=== PATIENT | male | born 1995 | race African-American/Black ===

== ENCOUNTER 2016-10-05 10:42 | Emergency (ER) | payer SELFPAY ==
[2016-10-05 10:42] VITALS: BP 140/73
[~2016-10-05 10:42] MED LIST: ALBU1.25 NEB; IBUP-1027 PO; NAPR375T3 PO; OMEP20TA PO; PRED50TA PO; PROAIR HFA8.5 GM INH
[2016-10-05] MEDS ORDERED: PRED20TA PO (11:01)
[2016-10-05] MEDS ORDERED: AZIT250T PO (11:01)
[2016-10-05] MEDS ORDERED: PROVENTIL HFA6.7 GM IH (11:01)
--- NOTE | 2016-10-05 11:01 | PHYS DOC ---
Past Medical History Past Medical History: Asthma Additional Past Medical Histor: ADHD Past Surgical History: No Surgical History Alcohol Use: None Drug Use: None Adult General Chief Complaint Chief Complaint: COUGH HPI HPI 20-year-old male with a history of asthma presents with several day history of cough congestion. He states cough is productive of yellow sputum. He denies any high fever chills or sweats. He denies smoking. He states he has been out of his albuterol inhaler at home. [] Review of Systems Review of Systems Constitutional: Denies fever or chills [] Eyes: Denies change in visual acuity, redness, or eye pain [] HENT: Denies nasal congestion or sore throat [] Respiratory: Cough and shortness of breath [] Cardiovascular: No additional information not addressed in HPI [] GI: Denies abdominal pain, nausea, vomiting, bloody stools or diarrhea [] : Denies dysuria or hematuria [] Musculoskeletal: Denies back pain or joint pain [] Integument: Denies rash or skin lesions [] Neurologic: Denies headache, focal weakness or sensory changes [] Endocrine: Denies polyuria or polydipsia [] Current Medications Current Medications Current Medications Medications (Trade) Dose Ordered Sig/Devora Start Time Stop Time Status Last Admin Dose Admin Albuterol/ Ipratropium (Duoneb) 6 ml 1X ONCE 10/05/16 11:00 10/05/16 11:01 UNV Azithromycin (Zithromax) 500 mg 1X ONCE 10/05/16 11:00 10/05/16 11:01 UNV Prednisone (Prednisone) 60 mg 1X ONCE 10/05/16 11:00 10/05/16 11:01 UNV Allergies Allergies Allergies Coded Allergies Type Severity Reaction Last Updated Verified No Known Drug Allergies 03/23/15 No Physical Exam Physical Exam Constitutional: Well developed, well nourished, no acute distress, non-toxic appearance. [] HENT: Normocephalic, atraumatic, bilateral external ears normal, oropharynx moist, no oral exudates, nose normal. [] Eyes: PERRLA, EOMI, conjunctiva normal, no discharge. [] Neck: Normal range of motion, no tenderness, supple, no stridor. [] Cardiovascular:Heart rate regular rhythm, no murmur [] Lungs & Thorax: Scattered wheezes throughout both lungs no rales [] Abdomen: Bowel sounds normal, soft, no tenderness, no masses, no pulsatile masses. [] Skin: Warm, dry, no erythema, no rash. [] Back: No tenderness, no CVA tenderness. [] Extremities: No tenderness, no cyanosis, no clubbing, ROM intact, no edema. [] Neurologic: Alert and oriented X 3, normal motor function, normal sensory function, no focal deficits noted. [] Psychologic: Affect normal, judgement normal, mood normal. [] Current Patient Data Vital Signs Vital Signs Date Time Temp Pulse Resp B/P Pulse Ox O2 Delivery O2 Flow Rate FiO2 10/05/16 10:42 97.7 73 18 92 Room Air 97.7 EKG EKG [] Radiology/Procedures Radiology/Procedures [] Course & Med Decision Making Course & Med Decision Making Pertinent Labs and Imaging studies reviewed. (See chart for details) [ED course: Evaluation reveals a 20-year-old male who was wheezing. He was given [id number] DuoNeb's, 60 mg of prednisone and his first dose of antibiotics. I will prescribe the patient inhaler and antibiotics as well as steroids to take as an outpatient.] Dragon Disclaimer Dragon Disclaimer This electronic medical record was generated, in whole or in part, using a voice recognition dictation system. Departure Departure Impression: Primary Impression: Asthma exacerbation Disposition: 01 HOME, SELF-CARE Condition: IMPROVED Referrals: NO PCP (PCP) Patient Instructions: Asthma Attacks, Prevention, Asthma, Adult, Asthma, F.L.A.R.E. Additional Instructions: Thank you for allowing us to participate in your care today. Followup with your primary care physician in 3 days if your symptoms do not improve. Return to the emergency department you have any new or concerning findings. This should be evaluated by the primary care physician and any necessary consulting services for continued management within a few days after discharge. Return to emergency room if you have any new or concerning symptoms including but not limited to fever, chills, nausea, vomiting, intractable pain, any new rashes, chest pain, shortness of air, uncontrolled bleeding, difficulty breathing, and/or vision loss. You may have been prescribed medication that can change in your level of thinking and ability to operate machinery. These medications include hydrocodone and Ativan. Also, Benadryl has been known to do this as well. Be sure to check with your pharmacist and ask if the medications you've prescribed can affect your level of consciousness. I recommend not operating heavy machinery or driving while on medication such as these. Scripts Albuterol Sulfate (Proventil Hfa Inhaler)6.7 Gm Hfa.aer.ad1 Puff IH PRN Q4HRS PRN asthma #1 INHALER NS Prov:RAYMUNDO DELGADO DO 10/05/16 Prednisone 20 Mg Tablet2 Tab PO DAILY PRN COUGH #14 TAB Prov:RAYMUNDO DELGADO DO 10/05/16 Azithromycin (Zithromax)250 Mg Tablet1 Pkg PO UD bronchitis #6 TAB Take 2 tablets on day 1 and then 1 tablet each day for the next 4 days as directed Prov:RAYMUNDO DELGADO DO 10/05/16 RAYMUNDO DELGADO DO Oct 05, 2016 11:01
[2016-10-05] MEDS ORDERED: IPRATRPIUM/ALBUTEROL 0.5/2.5MG 3 ML NEBU. NEB ONE (11:30)
[2016-10-05] MEDS ORDERED: AZITHROMYCIN 250 MG TABLET PO ONE (11:30)
[2016-10-05] MEDS ORDERED: PREDNISONE 20 MG TABLET PO ONE (11:30)
== END 2016-10-05 11:35 | disposition home or self-care (01) ==
LOC: ER 10:42
DX: J45.901 Unspecified asthma with (acute) exacerbation (principal)
CPT/HCPCS: 94250; 94640; 99283; J7512; J7620; Q0144

== ENCOUNTER 2016-12-25 18:03 | Emergency (ER) | payer BC ==
[~2016-12-25] VITALS: Ht 177.8 cm; Wt 81.6 kg
[~2016-12-25 18:03] MED LIST changes: +AZIT250T PO; +PRED20TA PO; +PROVENTIL HFA6.7 GM IH
[2016-12-25 18:05] VITALS: BP 140/73
[2016-12-25] MEDS ORDERED: PROAIR RESPICL90 MCG IH ×2 (18:15→18:48)
--- NOTE | 2016-12-25 18:15 | PHYS DOC ---
Past Medical History Past Medical History: Asthma Additional Past Medical Histor: ADHD Past Surgical History: No Surgical History Alcohol Use: None Drug Use: None Adult General Chief Complaint Chief Complaint: MEDICATION REFILL [facility] HPI Patient is a 21 year old male with history of asthma who presents today requesting a refill for his pro-air. Patient has no PCP. He has no symptoms today. Review of Systems Review of Systems Constitutional: Denies fever or chills [] Eyes: Denies change in visual acuity, redness, or eye pain [] HENT: Denies nasal congestion or sore throat [] Respiratory: Refill for Pro air Cardiovascular: No additional information not addressed in HPI [] GI: Denies abdominal pain, nausea, vomiting, bloody stools or diarrhea [] : Denies dysuria or hematuria [] Musculoskeletal: Denies back pain or joint pain [] Integument: Denies rash or skin lesions [] Neurologic: Denies headache, focal weakness or sensory changes [] Endocrine: Denies polyuria or polydipsia [] Allergies Allergies Allergies Coded Allergies Type Severity Reaction Last Updated Verified No Known Drug Allergies 03/23/15 No Physical Exam Physical Exam Constitutional: Well developed, well nourished, no acute distress, non-toxic appearance. [] HENT: Normocephalic, atraumatic, bilateral external ears normal, oropharynx moist, no oral exudates, nose normal. [] Eyes: PERRLA, EOMI, conjunctiva normal, no discharge. [] Neck: Normal range of motion, no tenderness, supple, no stridor. [] Cardiovascular:Heart rate regular rhythm, no murmur [] Lungs & Thorax: Bilateral breath sounds clear to auscultation [] Abdomen: Bowel sounds normal, soft, no tenderness, no masses, no pulsatile masses. [] Skin: Warm, dry, no erythema, no rash. [] Back: No tenderness, no CVA tenderness. [] Extremities: No tenderness, no cyanosis, no clubbing, ROM intact, no edema. [] Neurologic: Alert and oriented X 3, normal motor function, normal sensory function, no focal deficits noted. [] Psychologic: Affect normal, judgement normal, mood normal. [] Current Patient Data Vital Signs Vital Signs Date Time Temp Pulse Resp B/P Pulse Ox O2 Delivery O2 Flow Rate FiO2 12/25/16 18:05 97.8 87 18 99 Room Air 97.8 EKG EKG [] Radiology/Procedures Radiology/Procedures [] Course & Med Decision Making Course & Med Decision Making Pertinent Labs and Imaging studies reviewed. (See chart for details) Patient is in the ED for refill for Pro-air for his asthma. He has no PCP. I gave him a refill as well as a PCP for follow-up with. Shar Disclaimer Shar Disclaimer This electronic medical record was generated, in whole or in part, using a voice recognition dictation system. Departure Departure Impression: Primary Impression: Medication refill Disposition: HOME, SELF-CARE Condition: STABLE Referrals: NO PCP (PCP) Please follow-up with a primary care doctor from the list provided in one week Patient Instructions: Medication Refill, Emergency Department Additional Instructions: Please establish care with a primary care doctor and follow-up for your asthma and medication refills as soon as possible Scripts Albuterol Sulfate (Proair Respiclick)90 Mcg Aer.pow.ba1 Puff IH PRN Q6HRS PRN SHORTNESS OF BREATH #1 INHALER Prov:RICK ANNA APRN 12/25/16 RICK ANNA APRN Dec 25, 2016 18:15
== END 2016-12-25 18:33 | disposition home or self-care (01) ==
LOC: ER 18:03
DX: Z76.0 Encounter for issue of repeat prescription (principal); J45.909 Unspecified asthma, uncomplicated; F90.9 Attention-deficit hyperactivity disorder, unspecified type
CPT/HCPCS: 99283

== ENCOUNTER 2017-01-02 15:48 | Emergency (ER) | payer BC ==
[~2017-01-02] VITALS: Ht 177.8 cm; Wt 81.6 kg
[~2017-01-02 15:48] MED LIST changes: +PROAIR RESPICL90 MCG IH
[2017-01-02 15:59] VITALS: BP 151/62
[2017-01-02] MEDS ORDERED: MOME13HF IH (16:11)
[2017-01-02] MEDS ORDERED: PROAIR HFA8.5 GM INH (16:11)
--- NOTE | 2017-01-02 16:12 | PHYS DOC ---
Past Medical History Past Medical History: Asthma Additional Past Medical Histor: ADHD Past Surgical History: No Surgical History Additional Information: exposed to 2nd hand smoke Alcohol Use: Rarely Drug Use: None Adult General Chief Complaint Chief Complaint: MEDICATION REFILL HPI HPI Patient is a 21 year old male who presents emergency Department today requesting refills on the Dulera and ProAir. He denies any difficulty breathing this time. He states that he has recently changed insurances and has not notified a primary care doctor to address his medical concerns. Review of Systems Review of Systems Constitutional: Denies fever or chills [] Eyes: Denies change in visual acuity, redness, or eye pain [] HENT: Denies nasal congestion or sore throat [] Respiratory: Denies cough or shortness of breath [] Cardiovascular: No additional information not addressed in HPI [] GI: Denies abdominal pain, nausea, vomiting, bloody stools or diarrhea [] : Denies dysuria or hematuria [] Musculoskeletal: Denies back pain or joint pain [] Integument: Denies rash or skin lesions [] Neurologic: Denies headache, focal weakness or sensory changes [] Endocrine: Denies polyuria or polydipsia [] Allergies Allergies Allergies Coded Allergies Type Severity Reaction Last Updated Verified No Known Drug Allergies 03/23/15 No Physical Exam Physical Exam Constitutional: Well developed, well nourished, no acute distress, non-toxic appearance. [] HENT: Normocephalic, atraumatic, bilateral external ears normal, oropharynx moist, no oral exudates, nose normal. [] Eyes: PERRLA, EOMI, conjunctiva normal, no discharge. [] Neck: Normal range of motion, no tenderness, supple, no stridor. [] Cardiovascular:Heart rate regular rhythm, no murmur [] Lungs & Thorax: Bilateral breath sounds clear to auscultation [] Abdomen: Bowel sounds normal, soft, no tenderness, no masses, no pulsatile masses. [] Skin: Warm, dry, no erythema, no rash. [] Back: No tenderness, no CVA tenderness. [] Extremities: No tenderness, no cyanosis, no clubbing, ROM intact, no edema. [] Neurologic: Alert and oriented X 3, normal motor function, normal sensory function, no focal deficits noted. [] Psychologic: Affect normal, judgement normal, mood normal. [] Current Patient Data Vital Signs Vital Signs Date Time Temp Pulse Resp B/P Pulse Ox O2 Delivery O2 Flow Rate FiO2 01/02/17 15:59 98.1 78 16 98 Room Air 98.1 EKG EKG [] Radiology/Procedures Radiology/Procedures [] Course & Med Decision Making Course & Med Decision Making Pertinent Labs and Imaging studies reviewed. (See chart for details) [] Dragon Disclaimer Dragon Disclaimer This electronic medical record was generated, in whole or in part, using a voice recognition dictation system. Departure Departure Impression: Primary Impression: Asthma Additional Impression: Medication refill Disposition: HOME, SELF-CARE Condition: GOOD Referrals: NO PCP (PCP) Patient Instructions: Asthma, Adult, [id number], Medication Refill, Emergency Department Additional Instructions: 1. Your medications have been prescribed his requested today. Keep in mind, that you also had 2 refills. This should give you adequate time to find a new primary care doctor. 2. Use the pamphlet provided for assistance in finding a primary care doctor to address your medical concerns. Scripts Albuterol Sulfate (Proair Hfa Inhaler)8.5 Gm Hfa.aer.ad1 Puff INH PRN Q6HRS PRN SHORTNESS OF BREATH #1 INHALER Ref 2 Prov:ANETTE WILLARD 01/02/17 Mometasone/Formoterol (Dulera 200 Mcg/5 Mcg Inhaler)13 Gm Hfa.aer.ad2 Puff IH BID #13 GM Ref 2 Prov:ANETTE WILLARD 01/02/17 Problem Qualifiers ANETTE WILLARD Jan 02, 2017 16:12
== END 2017-01-02 16:13 | disposition home or self-care (01) ==
LOC: ER 15:48
DX: Z76.0 Encounter for issue of repeat prescription (principal); J45.909 Unspecified asthma, uncomplicated; F90.9 Attention-deficit hyperactivity disorder, unspecified type
CPT/HCPCS: 99283

== ENCOUNTER 2017-04-26 14:26 | Emergency (ER) | payer BC ==
[~2017-04-26] VITALS: Ht 177.8 cm; Wt 81.6 kg
[~2017-04-26 14:26] MED LIST changes: +MOME13HF IH; -OMEP20TA PO; +OMEP20TA8 PO
[2017-04-26 14:34] VITALS: BP 147/68
[2017-04-26] MEDS ORDERED: MOME13HF IH (14:49)
[2017-04-26] MEDS ORDERED: PROAIR HFA8.5 GM INH (14:49)
--- NOTE | 2017-04-26 14:49 | PHYS DOC ---
Past Medical History Past Medical History: Asthma, Other Additional Past Medical Histor: ADHD Past Surgical History: No Surgical History Alcohol Use: Rarely Drug Use: None Adult General Chief Complaint Chief Complaint: MEDICATION REFILL [facility] HPI Patient is a 21 year old male with history of asthma who presents today requesting a refill for Dulera and Proair. Patient has no symptoms. Review of Systems Review of Systems Constitutional: Denies fever or chills [] Eyes: Denies change in visual acuity, redness, or eye pain [] HENT: Denies nasal congestion or sore throat [] Respiratory: medication refill] Cardiovascular: No additional information not addressed in HPI [] GI: Denies abdominal pain, nausea, vomiting, bloody stools or diarrhea [] : Denies dysuria or hematuria [] Musculoskeletal: Denies back pain or joint pain [] Integument: Denies rash or skin lesions [] Neurologic: Denies headache, focal weakness or sensory changes [] Endocrine: Denies polyuria or polydipsia [] Allergies Allergies Allergies Coded Allergies Type Severity Reaction Last Updated Verified No Known Drug Allergies 03/23/15 No Physical Exam Physical Exam Constitutional: Well developed, well nourished, no acute distress, non-toxic appearance. [] HENT: Normocephalic, atraumatic, bilateral external ears normal, oropharynx moist, no oral exudates, nose normal. [] Eyes: PERRLA, EOMI, conjunctiva normal, no discharge. [] Neck: Normal range of motion, no tenderness, supple, no stridor. [] Cardiovascular:Heart rate regular rhythm, no murmur [] Lungs & Thorax: Bilateral breath sounds clear to auscultation [] Abdomen: Bowel sounds normal, soft, no tenderness, no masses, no pulsatile masses. [] Skin: Warm, dry, no erythema, no rash. [] Back: No tenderness, no CVA tenderness. [] Extremities: No tenderness, no cyanosis, no clubbing, ROM intact, no edema. [] Neurologic: Alert and oriented X 3, normal motor function, normal sensory function, no focal deficits noted. [] Psychologic: Affect normal, judgement normal, mood normal. [] Current Patient Data Vital Signs Vital Signs Date Time Temp Pulse Resp B/P (MAP) Pulse Ox O2 Delivery O2 Flow Rate FiO2 04/26/17 14:34 98.3 61 16 97 Room Air 98.3 EKG EKG [] Radiology/Procedures Radiology/Procedures [] Course & Med Decision Making Course & Med Decision Making Pertinent Labs and Imaging studies reviewed. (See chart for details) Patient is in the ED for medication refill for Proair and Dulera. Prescription given to him. Encouraged to follow up with her PCP. Shar Disclaimer Shar Disclaimer This electronic medical record was generated, in whole or in part, using a voice recognition dictation system. Departure Departure Impression: Primary Impression: Medication refill Disposition: HOME, SELF-CARE Condition: STABLE Referrals: NO PCP (PCP) Follow-up with your doctor in 1-2 weeks Patient Instructions: Asthma, Adult Additional Instructions: You were seen for medication refill for asthma medication. Take them as prescribed. Follow-up with your doctor as soon as you can. Scripts Albuterol Sulfate (PROAIR HFA INHALER) 8.5 Gm Hfa.aer.ad 1 PUFF INH PRN Q6HRS Y for SHORTNESS OF BREATH, #1 INHALER 0 Refills Prov: RICK ANNA APRN 04/26/17 Mometasone/Formoterol (DULERA 200 MCG/5 MCG INHALER) 13 Gm Hfa.aer.ad 2 PUFF IH BID, #13 GM 2 Refills Prov: RICK ANNA APRN 04/26/17 RICK ANNA APRN Apr 26, 2017 14:49
== END 2017-04-26 14:51 | disposition home or self-care (01) ==
LOC: ER 14:26
DX: J45.909 Unspecified asthma, uncomplicated (principal); Z76.0 Encounter for issue of repeat prescription
CPT/HCPCS: 99283

== ENCOUNTER 2017-10-04 21:12 | Emergency (ER) | payer BC ==
[2017-10-04] MEDS: IPRATRPIUM/ALBUTEROL 0.5/2.5MG 3 ML NEBU. NEB (21:37)
[2017-10-04] MEDS: predniSONE 20 MG TABLET PO (21:51)
== END 2017-10-04 22:00 | disposition home or self-care (01) ==
LOC: ER 21:12
DX: J45.901 Unspecified asthma with (acute) exacerbation (principal); F90.9 Attention-deficit hyperactivity disorder, unspecified type
CPT/HCPCS: 94640; 99283-25; J7512; J7620

== ENCOUNTER 2017-12-13 08:53 | Emergency (ER) | payer BC | END 2017-12-13 10:07 | disposition home or self-care (01) | LOC: ER 08:53 | DX: Z76.0 Encounter for issue of repeat prescription (principal); J45.909 Unspecified asthma, uncomplicated; F90.9 Attention-deficit hyperactivity disorder, unspecified type | CPT/HCPCS: 99283 ==

== ENCOUNTER 2018-09-27 14:56 | Emergency (ER) | payer BC ==
[~2018-09-27] VITALS: Ht 177.8 cm; Wt 81.6 kg
[~2018-09-27 14:56] MED LIST changes: +ALBU2.5V14 NEB; +ALBU2.5V8 IH; +ALBU2.5V8 INH; +NAPR-695 PO; -NAPR375T3 PO; -PROAIR HFA8.5 GM INH; -PROVENTIL HFA6.7 GM IH
[2018-09-27 15:27] VITALS: BP 149/69
[2018-09-27] MEDS ORDERED: LIDOCAINE WITH 8.4% SOD BICARB 3 ML DISP.SYRIN. INJ ONE (15:30)
[2018-09-27] MEDS ORDERED: DIPHTH,PERTUSS(ACELL),TET TOX 0.5 ML DISP.SYRIN. VAX IM ONE (15:30)
[2018-09-27] MEDS ORDERED: HYDROcodone/APAP 5/325MG 1 TAB TABLET PO ONE (15:45)
--- NOTE | 2018-09-27 16:26 | RAD ---
Right wrist, 3 views, 09/27/2018: HISTORY: Penetrating trauma There are old healed fractures of the fifth metacarpal and probably the distal fourth metacarpal. Lucencies projected over the ulnar aspect of the distal radius are likely due to old trauma or overlying soft tissue shadows. No definite acute fracture or dislocation is identified. No radiopaque foreign body is evident in the soft tissues. IMPRESSION: No acute bony abnormality is detected. Electronically signed by: Omkar Person MD (09/27/2018 4:22 PM) [facility]
[2018-09-27] MEDS ORDERED: HYDR-3164 PO (17:19)
--- NOTE | 2018-09-27 17:20 | PHYS DOC ---
Past Medical History Past Medical History: Asthma, Other Additional Past Medical Histor: ADHD Past Surgical History: No Surgical History Alcohol Use: Rarely Drug Use: None Adult General Chief Complaint Chief Complaint: LACERATION/AVULSION [facility] HPI Patient is a 22 year old male who presents with a laceration to his right forearm that happened when he was opening a bag of chips with scissors and started by his dog. He denies any other injury. He is not up to date on his tetanus. Review of Systems Review of Systems Constitutional: Denies fever or chills [] Respiratory: Denies cough or shortness of breath [] Cardiovascular: No additional information not addressed in HPI [] GI: Denies abdominal pain, nausea, vomiting, bloody stools or diarrhea [] : Denies dysuria or hematuria [] Musculoskeletal: Denies back pain or joint pain [] Integument: See HPI Neurologic: Denies headache, focal weakness or sensory changes [] Endocrine: Denies polyuria or polydipsia [] All other systems were reviewed and found to be within normal limits, except as documented in this note. Current Medications Current Medications Current Medications Medications (Trade) Dose Ordered Sig/Devora Start Time Stop Time Status Last Admin Dose Admin Acetaminophen/ Hydrocodone Bitart (Lortab 5/325) 2 tab 1X ONCE 09/27/18 15:45 09/27/18 15:46 DC 09/27/18 16:30 2 TAB Diphtheria/ Tetanus/Acell Pertussis (Boostrix) 0.5 ml ONCE ONCE 09/27/18 15:30 09/27/18 15:31 DC 09/27/18 16:30 0.5 ML Lidocaine/Sodium Bicarbonate (Buffered Lidocaine 1%) 3 ml 1X ONCE 09/27/18 15:30 09/27/18 15:31 DC 09/27/18 16:30 3 ML Neomycin/ Polymyxin/ Bacitracin (Triple Antibiotic Ointment) 1 pkt 1X ONCE 09/27/18 17:30 09/27/18 17:31 DC 09/27/18 17:30 1 PKT Allergies Allergies Allergies Coded Allergies Type Severity Reaction Last Updated Verified No Known Drug Allergies 03/23/15 No Physical Exam Physical Exam Constitutional: Well developed, well nourished, no acute distress, non-toxic appearance. [] Cardiovascular:Heart rate regular rhythm, no murmur [] Lungs & Thorax: Bilateral breath sounds clear to auscultation [] Abdomen: Bowel sounds normal, soft, no tenderness, no masses, no pulsatile masses. [] Skin: 1.5 cm laceration to right forearm with no sign of tendon disruption, bleeding is controlled Back: No tenderness, no CVA tenderness. [] Extremities: No tenderness, no cyanosis, no clubbing, ROM intact, no edema. [] Neurologic: Alert and oriented X 3, normal motor function, normal sensory function, no focal deficits noted. [] Psychologic: Affect normal, judgement normal, mood normal. [] Current Patient Data Vital Signs EKG EKG [] Radiology/Procedures Radiology/Procedures My Laceration The patient has a 1.5 cm laceration to the right forearm. Following vigorous irrigation and cleaning the patient's laceration was numbed with lidocaine. 3 sutures were placed to repair the wound. The wound was then dressed with non- adherent dressing and gauze. The patient was also given Boostrix. The patient tolerated the procedure well. He has been instructed to return in 7-10 days for suture removal either here or at his PCP's office.[] Course & Med Decision Making Course & Med Decision Making Pertinent Labs and Imaging studies reviewed. (See chart for details) [] Staff Physician Addendum: I was working in the ER during the course of this patient's visit. I was available for consultation as needed, but I was not directly involved in the care of this patient. Dragon Disclaimer Dragon Disclaimer This electronic medical record was generated, in whole or in part, using a voice recognition dictation system. Departure Departure Impression: Primary Impression: Laceration Additional Impression: Need for tetanus booster Disposition: 01 HOME, SELF-CARE Condition: STABLE Referrals: NO PCP (PCP) Patient Instructions: Laceration Care, Adult Additional Instructions: Take the medication as directed. Do not drive or operate heavy machinery while taking this medication. Follow-up with your primary care provider in 7-10 days for suture removal. If the laceration appears to be becoming infected follow-up sooner or return to the emergency department. Scripts Hydrocodone/Apap 5-325 (NORCO 5-325 TABLET) 1 Each Tablet 1 TAB PO PRN Q6HRS PRN for PAIN, #20 TAB 0 Refills Prov: JENS ORDAZ APRN 09/27/18 Problem Qualifiers JENS ORDAZ APRN Sep 27, 2018 17:20 BIN SR MD February 18, 2019 06:59
[2018-09-27] MEDS ORDERED: NEOMY/BACITR/POLYMYXIN OINT PACKET. TP ONE (17:30)
== END 2018-09-27 17:44 | disposition home or self-care (01) ==
LOC: ER 14:56
DX: S61.511A Laceration without foreign body of right wrist, initial encounter (principal); J45.909 Unspecified asthma, uncomplicated; F90.9 Attention-deficit hyperactivity disorder, unspecified type; W26.0XXA Contact with knife, initial encounter; Y93.89 Activity, other specified; Y92.090 Kitchen in other non-institutional residence as the place of occurrence of the external cause; Y99.8 Other external cause status
CPT/HCPCS: 73110; 90471; 90715; 99283-25

== ENCOUNTER 2018-10-17 13:21 | Emergency (ER) | payer BC ==
[~2018-10-17] VITALS: Ht 177.8 cm; Wt 68.0 kg
[~2018-10-17 13:21] MED LIST changes: +HYDR-3164 PO
[2018-10-17 14:18] VITALS: BP 123/54
--- NOTE | 2018-10-17 14:29 | PHYS DOC ---
Past Medical History Past Medical History: No Pertinent History Additional Past Medical Histor: ADHD Past Surgical History: No Surgical History Alcohol Use: None Drug Use: None Adult General Chief Complaint Chief Complaint: SUTURE/STAPLE REMOVAL HPI HPI 22-year-old male presents to ER for suture removal on rt forearm wound. Pt was evaluated in this ER 09/27/18 following an accidental laceration to posterior right distal forearm. Patient denies numbness or tingling, swelling, fever, or drainage. Review of Systems Review of Systems Constitutional: Denies fever or chills [] Musculoskeletal: Denies joint pain [] Integument: Denies swelling/redness. Neurologic: Denies focal weakness or sensory changes. Denies numbness/tingling All other systems were reviewed and found to be within normal limits, except as documented in this note. Allergies Allergies Allergies Coded Allergies Type Severity Reaction Last Updated Verified No Known Drug Allergies 03/23/15 No Physical Exam Physical Exam Constitutional: Well developed, well nourished, no acute distress, non-toxic appearance. [] HENT: Normocephalic, atraumatic Neck: Normal range of motion Cardiovascular:Heart rate regular Lungs & Thorax: Resp. equal/nonlabored Skin: Warm, dry, no erythema Extremities: No tenderness, no cyanosis, no clubbing, ROM intact, no edema. Rt posterior distal forearm with well healed laceration- no swelling/drainage/ ecchymosis/erythema at wound site. Cap refill brisk all fingers rt hand with no c/o pain with ROM of hand/wrist Neurologic: Alert and oriented X 3, normal motor function, normal sensory function, no focal deficits noted. [] Psychologic: Affect normal, judgement normal, mood normal. [] Current Patient Data Vital Signs Vital Signs Date Time Temp Pulse Resp B/P (MAP) Pulse Ox O2 Delivery O2 Flow Rate FiO2 10/17/18 14:18 98.0 59 16 123/54 (77) 98 98.0 EKG EKG [] Radiology/Procedures Radiology/Procedures [] Course & Med Decision Making Course & Med Decision Making Patient presented to ER for suture removal and wound reevaluation. Patient had had sutures placed 09/27/18. Patient had [address] right posterior distal forearm laceration site which were easily removed by RN. Wound was well healed with no signs of infection. Patient tolerated suture removal well and had no bleeding following removal. Patient remained neuro and vascular intact in right upper extremity. Patient had full range of motion. Home wound care was discussed along with education being provided on signs and symptoms to return to ER for. Discharge instructions discussed patient was in no visible distress and nontoxic in appearance. [] Staff Physician Addendum: I was working in the ER during the course of this patient's visit. I was available for consultation as needed, but I was not directly involved in the care of this patient. Dragon Disclaimer Dragon Disclaimer This electronic medical record was generated, in whole or in part, using a voice recognition dictation system. Departure Departure Impression: Primary Impression: Visit for suture removal Disposition: HOME, SELF-CARE Condition: STABLE Referrals: NO PCP (PCP) Patient Instructions: Suture Removal Additional Instructions: Continue to monitor wound for signs of infection and follow-up with Work Comp for further evaluation/care and paperwork. GERARD MONTALVO APRN Oct 17, 2018 14:28 BIN SR MD Nov 14, 2018 07:09
== END 2018-10-17 14:32 | disposition home or self-care (01) ==
LOC: ER 13:21
DX: S51.811D Laceration without foreign body of right forearm, subsequent encounter (principal); X58.XXXD Exposure to other specified factors, subsequent encounter
CPT/HCPCS: 99281